=== PATIENT | female | born 1995 | race Two or more races ===

== ENCOUNTER 2017-08-16 15:13 | Emergency (ER) | payer OTHER ==
[~2017-08-16] VITALS: Ht 149.9 cm; Wt 45.6 kg
[2017-08-16 17:29] LABS: PATH.CAST-FLAG NOT PRESENT; SPERM-FLAG NOT PRESENT; SRC-FLAG NOT PRESENT; XTAL-FLAG NOT PRESENT; YLC-FLAG NOT PRESENT
[2017-08-16 17:35] VITALS: BP 116/75
== END 2017-08-16 18:07 | disposition home or self-care (01) ==
LOC: ED 18:02
DX: O20.0 Threatened abortion (principal); Z3A.00 Weeks of gestation of pregnancy not specified
CPT/HCPCS: 36415; 76801; 81001; 84702; 86901; 87086; 99285

== ENCOUNTER 2018-03-22 17:10 | Emergency (ER) | payer OTHER ==
[~2018-03-22] VITALS: Ht 149.9 cm; Wt 44.6 kg
[2018-03-22 18:06] LABS: BASOPHILS # (AUTO) 0.02 x10^3/uL (0-0.1); BASOPHILS % (AUTO) 0 % (0-1); EOSINOPHILS # (AUTO) 0.04 x10^3/uL (0-0.4); EOSINOPHILS % (AUTO) 1 % (1-7); LYMPHOCYTES # (AUTO) 2.07 x10^3/uL (1-3.4); LYMPHOCYTES % (AUTO) 26 % (22-44); MD NO; MEAN CORPUSCULAR HEMOGLOBIN 30.6 pg (27.0-34.8); MEAN CORPUSCULAR HGB CONC 34.7 g/dL (32.4-35.8); MEAN CORPUSCULAR VOLUME 88.2 fL (80-100); MEAN PLATELET VOLUME 8.1 fL (7.4-10.4); MONOCYTES # (AUTO) 0.28 x10^3/uL (0.2-0.8); MONOCYTES % (AUTO) 4 % (2-9); NEUTROPHILS # (AUTO) 5.47 x10^3/uL (1.8-6.8); NEUTROPHILS % (AUTO) 70 % (42-75); PLATELET COUNT 259 x10^3/uL (130-400); RED BLOOD COUNT 4.67 x10^6/uL (3.82-5.3); RED CELL DISTRIBUTION WIDTH 12.3 % (9.6-15.2)
[2018-03-22 18:19] LABS: ALBUMIN 4.3 g/dL (3.4-5.0); ANION GAP 10 mmol/L (5-15); CALCIUM 9.4 mg/dL (8.5-10.1); CHLORIDE 109 mmol/L (98-107); CREATININE 0.59 mg/dL (0.55-1.02)
[2018-03-22 18:32] LABS: CULTURE INDICATED? YES; MICROSCOPIC AUTO
[2018-03-22 19:43] VITALS: BP 110/78
== END 2018-03-22 20:01 | disposition home or self-care (01) ==
LOC: ED 18:25
DX: O20.0 Threatened abortion (principal); Z3A.12 12 weeks gestation of pregnancy; R82.99 Other abnormal findings in urine
CPT/HCPCS: 36415; 76801; 80048; 81001; 82040; 84702; 85025; 87086; 99285

== ENCOUNTER 2018-03-31 19:24 | Observation (INO) | payer OTHER ==
[~2018-03-31] VITALS: Ht 149.9 cm; Wt 44.3 kg
[2018-03-31 21:09] LABS: BASOPHILS # (AUTO) 0.04 x10^3/uL (0-0.1); BASOPHILS % (AUTO) 0 % (0-1); EOSINOPHILS # (AUTO) 0.07 x10^3/uL (0-0.4); EOSINOPHILS % (AUTO) 1 % (1-7); LYMPHOCYTES # (AUTO) 2.78 x10^3/uL (1-3.4); LYMPHOCYTES % (AUTO) 29 % (22-44); MD NO; MEAN CORPUSCULAR HEMOGLOBIN 30.1 pg (27.0-34.8); MEAN CORPUSCULAR HGB CONC 34.5 g/dL (32.4-35.8); MEAN CORPUSCULAR VOLUME 87.3 fL (80-100); MEAN PLATELET VOLUME 7.8 fL (7.4-10.4); MONOCYTES # (AUTO) 0.44 x10^3/uL (0.2-0.8); MONOCYTES % (AUTO) 5 % (2-9); NEUTROPHILS # (AUTO) 6.43 x10^3/uL (1.8-6.8); NEUTROPHILS % (AUTO) 66 % (42-75); PLATELET COUNT 260 x10^3/uL (130-400); RED BLOOD COUNT 4.32 x10^6/uL (3.82-5.3); RED CELL DISTRIBUTION WIDTH 12.1 % (9.6-15.2)
[2018-03-31 21:20] LABS: ALBUMIN 3.7 g/dL (3.4-5.0); ANION GAP 8 mmol/L (5-15); CHLORIDE 109 mmol/L (98-107); CREATININE 0.67 mg/dL (0.55-1.02)
[2018-03-31] MEDS ORDERED: DOXYCYCLINE 100MG TABLET PO ONE ×2 (22:00→23:30)
[2018-03-31] MEDS ORDERED: DOXYCYCLINE 100MG TABLET ONE (22:06)
[2018-03-31 22:12] VITALS: BP 116/85
[2018-03-31] MEDS ORDERED: OXYTOCIN 10 UNITS/ML, 1ML ONE (22:15)
[2018-03-31] MEDS ORDERED: METHYLERGONOVINE 0.2 MG/ML IM ONE (22:15)
[2018-03-31] MEDS ORDERED: SILVER NITRATE STICK TP ONE (22:16)
[2018-03-31] MEDS ORDERED: MISOPROSTOL 200 MCG TABLET ONE (22:16)
[2018-03-31] MEDS ORDERED: FENTANYL PF 100 MCG/2ML ONE (22:18)
[2018-03-31] MEDS ORDERED: MIDAZOLAM 1 MG/ML, 2ML ONE (22:19)
[2018-03-31] MEDS ORDERED: PROPOFOL 10 MG/ML, 20ML ONE (22:19)
[2018-03-31] MEDS ORDERED: LIDOCAINE 2%, 10ML ONE (22:19)
[2018-03-31] MEDS ORDERED: ONDANSETRON ODT 8 MG ONE ×2 (22:20)
[2018-03-31] MEDS ORDERED: DEXAMETHASONE 4 MG/ML, 1ML ONE ×2 (22:21)
[2018-03-31] MEDS ORDERED: SUCCINYLCHOLINE 20 MG/ML, 10ML ONE (22:21)
[2018-03-31] MEDS ORDERED: KETOROLAC 30 MG/1 ML ONE (22:21)
[2018-03-31] MEDS ORDERED: MEPERIDINE/PF 25MG/0.5ML IVPush PRN (23:00)
[2018-03-31] MEDS ORDERED: ACETAMINOPHEN 325 MG TABLET PO PRN (23:00)
[2018-03-31] MEDS ORDERED: PROMETHAZINE 25 MG/ML, 1ML IV PRN (23:00)
[2018-03-31] MEDS ORDERED: FENTANYL PF 100 MCG/2ML IV PRN (23:00)
[2018-03-31] MEDS ORDERED: morphine SULFATE 10 MG/ML, 1ML IV PRN (23:00)
[2018-03-31] MEDS ORDERED: OXYcodone 5 MG/5 ML ORAL.SOL UDC PO PRN (23:00)
[2018-03-31] MEDS ORDERED: ACETAMINOPHEN 650 MG/20.3 ML UDC ONE (23:25)
[2018-03-31] MEDS ORDERED: OXYcodone 5 MG/5 ML ORAL.SOL UDC ONE (23:25)
[2018-03-31] MEDS ORDERED: MEPERIDINE/PF 25MG/0.5ML ONE (23:37)
[2018-04-01] MEDS ORDERED: IBUP-1223 PO (00:27)
[2018-04-01] MEDS ORDERED: OXYC-302 PO (00:28)
[2018-04-01] MEDS ORDERED: OXYcodone/APAP 5/325MG TABLET PO PRN (00:30)
== END 2018-04-01 01:35 | disposition home or self-care (01) ==
LOC: ED 20:36 → EDIP 21:46 → 4NOR 04-01 00:08
PROVIDERS: ADMIT Student in an Organized Health Care Education/Training Program; ATTEND Student in an Organized Health Care Education/Training Program
DX: O03.4 Incomplete spontaneous abortion without complication (principal); Z3A.08 8 weeks gestation of pregnancy
CPT/HCPCS: 36415; 58120; 76801; 80048; 82040; 84702; 85025; 86850; 86900; 88305; G0378; J0330; J1100; J1885; J2175; J2210; J2250; J2704; J3010; J3490; Q0162; J2590